=== PATIENT | male | born 1970 | race Caucasian/White ===

== ENCOUNTER 2023-08-31 08:51 | Outpatient (AMB) | payer OTHER, SELFPAY ==
--- NOTE | 2023-08-31 09:05 | A.OFFVIS_ITS ---
Intake Vital Signs 08/31/23 09:09 Height 5 ft 8 in Weight 110 lb BMI 16.7 Intake Visit Reasons: HAND [employer]- RT knee pain Intake Note: Placido 53 year old male presents today as a new patient for an evaluation of right knee pain. Patient reports pain has been present for about 4 months, he was seen at [facility] due to swelling and itchiness at the posterior aspect. He states his pain has improved however he continues to have pain and difficulty with stair use as well as bicycling. Finds relief with acetaminophen. No other tx. Allergies No Known Allergies Allergy (Verified 08/31/23 09:09) Medication List - Last Reconciled 08/31/23 by Makenna Ross PA-C acetaminophen mg PO apixaban (Eliquis) 5 mg PO BID doxycycline monohydrate 100 mg PO BID methimazole 20 mg PO BID metoprolol tartrate 100 mg PO BID HPI HAND [employer]ENNIS [employer]ER- RT knee pain HPI Details 53-year-old male who presents to the off ice today for evaluation of right knee pain for about 4 moths. He was seen at [facility] for his swelling and itchiness at the posterior aspect of his knee. He states his pain is improved however he continues to have pain and difficulty in his knee with stair use and bicycling. He denies any clicking or popping in knee. He finds relief with acetaminophen. He has not had any treatment in the past. [facility] Social History (Updated 08/31/23 @ 09:22 by Sury Munoz Leonides) Patient Tobacco Use Status: Never used Tobacco Current occupational status: other Review of Systems Const All systems reviewed & are unremarkable except as noted in HPI and below Physical Exam Vital Signs: BMI result Body Mass Index 16.7 Const General: cooperative, healthy appearing, comfortable, no acute distress, well developed and alert Orientation/consciousness: patient oriented x3 HEENT Head: Yes normal to inspection, Yes normocephalic and Yes atraumatic Eyes General: appearance normal, both eyes and all related structures Resp Effort & Inspection: normal respiratory effort and able to speak in complete sentences Cardio Rate: regular rate Peripheral pulses: Peripheral pulses 2+ throughout GI Palpation (GI): Soft to palpation Skin Lesions: no lesions Rashes: no rashes Neuro General: patient oriented x3 Extrem Other: Right knee: Skin intact, no erythema or joint effusion. Lateral retropatellar tenderness present. Full ROM with crepitus. Negative Turner?s. No ligamentous laxity. NVI. Results Reviewed Results Reviewed: Xrays were obtained in the office today and personally reviewed by me of the right knee show mild medial joint sclerosis with pf oa Assessment & Plan Assessment & Plan (1) Patellofemoral arthritis of right knee: Code(s): M17.11 - Unilateral primary osteoarthritis, right knee Plan We discussed options which include PT, NSAIDs and injections. The patient will defer on the injection today and proceed with PT and NSAIDs. If symptoms pers ist, the patient will contact me for an injection, otherwise, PRN. He was fit for a genumed knee brace today. Orders: Orders XR knee standing BI 08/31/23 M25.561 - Pain in right knee, M25.562 - Pain in left knee XR knee RT 2V 08/31/23 M25.569 - Pain in unspecified knee PT Evaluation and Treatment 08/31/23 M17.11 - Unilateral primary osteoarthritis, right knee Patient Instructions: Scribed for Makenna Ross PA-C, by Efrain Solares medical reception specialist, on 08/31/2023 at 9:00 AM EST. I, Makenna Ross PA-C, have personally reviewed and agree with the information entered by the scribe. Coding Level of Care Code New Pt Level 3 (20413) Diagnoses Patellofemoral arthritis of right knee M17.11
[2023-08-31 09:09] VITALS: BMI 16.7
== END 2023-08-31 09:49 | disposition home or self-care (01) ==
PROVIDERS: PCP Internal Medicine; Visit Provider Physician Assistant
DX: M17.11 Unilateral primary osteoarthritis, right knee (principal)
CPT/HCPCS: 99203

== ENCOUNTER 2023-08-31 17:25 | Outpatient (REF) | payer OTHER, SELFPAY ==
--- NOTE | ~2023-08-31 | XR_ITS ---
EXAMINATION: XR KNEE, RIGHT XR KNEE AP STANDING CLINICAL INFORMATION: Knee pain. COMPARISON: None available. TECHNIQUE: Two views of the right knee. AP bilateral standing view of the knees was obtained. FINDINGS: No fracture or significant joint effusion is appreciated. Alignment is anatomic. Joint spaces appear maintained. No abnormal soft tissue calcification. Surgical dilan project over and just lateral to the distal aspect of the left femoral metaphysis and left patella. XR/XR knee RT 2V IMPRESSION: No acute finding.
--- NOTE | ~2023-08-31 | XR_ITS ---
EXAMINATION: XR KNEE, RIGHT XR KNEE AP STANDING CLINICAL INFORMATION: Knee pain. COMPARISON: None available. TECHNIQUE: Two views of the right knee. AP bilateral standing view of the knees was obtained. FINDINGS: No fracture or significant joint effusion is appreciated. Alignment is anatomic. Joint spaces appear maintained. No abnormal soft tissue calcification. Surgical dilan project over and just lateral to the distal aspect of the left femoral metaphysis and left patella. XR/XR knee standing BI IMPRESSION: No acute finding.
== END 2023-08-31 17:26 | disposition home or self-care (01) ==
LOC: HO.HOSX 17:25
PROVIDERS: Visit Provider Physician Assistant
DX: M17.11 Unilateral primary osteoarthritis, right knee (principal); M25.562 Pain in left knee; Z79.899 Other long term (current) drug therapy
CPT/HCPCS: 73560; 73565; 99202